=== PATIENT | female | born 1945 | race Caucasian/White ===

== ENCOUNTER 2019-12-09 10:30 | Day surgery (SDC) | payer OTHER ==
--- NOTE | 2019-12-08 15:41 | RAD REPORT ---
EXAM DESCRIPTION: RAD - Chest Pa And Lat (2 Views) - 12/08/2019 3:35 pm CLINICAL HISTORY: preop Chest pain. COMPARISON: Chest Single View dated 12/12/2015; Chest Single View dated 12/11/2015 FINDINGS: The lungs are clear. The heart is normal in size. No displaced fractures. IMPRESSION: No acute or concerning finding suspected.
[2019-12-08 16:11] LABS: Absolute Lymphocytes (CBC) 3.1 K/uL (0.7-4.9); Hematocrit 39.1 % (36.0-45.0); Lymphocytes % 33.3 % (15.3-44.8); RBC Red Blood Cell Count 4.41 M/uL (3.86-4.86)
[2019-12-08 16:21] LABS: Potassium 4.8 mmol/L (3.5-5.1)
[2019-12-09] MEDS ORDERED: NA CHLORIDE 0.9% 1,000 ML ONE (11:07)
[2019-12-09] MEDS ORDERED: FENTANYL CITR 100 MCG/2 ML ONE (12:09)
[2019-12-09] MEDS ORDERED: LIDOCAINE 1% MPF 5 ML VIAL ONE (12:09)
[2019-12-09] MEDS ORDERED: propofoL 200 MG/20 ML VIAL IV ONE (12:09)
[2019-12-09] MEDS ORDERED: CEFAZOLIN/SWI 1gm 1 GM/10 ML SYR ONE (12:13)
[2019-12-09] MEDS ORDERED: dexAMETHasone 10 MG/ML VIAL ONE (12:48)
[2019-12-09] MEDS ORDERED: KETOROLAC 30 MG/ML INJ ONE (12:48)
[2019-12-09] MEDS ORDERED: ONDANSETRON 4 MG/2 ML VIAL ONE (12:49)
--- NOTE | 2019-12-09 13:00 | P.BOP ---
Preoperative diagnosis: infected back subcutaneous mass with abscess Postoperative diagnosis: same Primary procedure: Excision of infected back subcutaneous mass with abscess drainage 7 x 5 cm Estimated blood loss: <10cc Specimen: mass, cult Findings: see dicta Anesthesia: General Complications: None Drain(s): Other Transferred to: Recovery Room Condition: Good
[2019-12-09] MEDS: MORPHINE 4 MG/ML SYR ONE ×2 (13:22→13:27)
[2019-12-09 13:30] VITALS: O2SAT 95
[2019-12-09 13:34] VITALS: TEMP 97
[2019-12-09] MEDS ORDERED: CODEINE 30MG/APAP 300MG TAB ONE (14:11)
[2019-12-09 14:38] VITALS: BP 184/88
--- NOTE | 2019-12-09 21:30 | OP ---
Date of Procedure: 12/09/2019 Surgeon: Herrera Donato MD Diagnosis: Infected back subcutaneous mass with abscess. Procedure: Excisional biopsy of complex infected back subcutaneous mass with abscess drainage, 7 x 5 x 1.5 cm. Specimen: Mass and culture of the purulent discharge and abscess. Anesthesia: General plus local. Indications: This is the case of a lady, who comes to us with a large mass in the back area with nec rotic skin present. This mass in the subcutaneous tissue was associated with cellulitis and abscess. The benefits, alternatives, and risks of excision and drainage of an abscess fully explained, which include, but not limited to infection, bleeding, damage to adjacent structures, anesthesia complicat ion, nonhealing wound, WI, and even . She also understands this may not relieve the symptoms. She might need more than one surgical intervention. She understood and signed the consent. The area of concern was marked by me and the patient in the operating room. She claimed that 1 of her friend 's family member will be doing dressing change on her. Description Of Procedure: The patient was brought to the operating room, placed in supine position, anesthesia was done without complication. The patient was placed in lateral decubitus position with proper protection. Back area was prepped and draped in sterile fashion. After that, we proceeded to delineate the area. There is necrotic tissue present, purulent discharge coming out. So, we debrid ed all that area and removed the skin with subcutaneous tissue, which is an area about 7 x 5 cm and t hen about 1 cm deep. It goes down to muscle and fascia of the muscle, but does not seem to be penetr ating the muscle. Hemostasis was obtained. Loculations were explored open, abscess was drained with the mass excised. The patient tolerated the procedure well. Area was injected with local anestheti c. Hemostasis was obtained and packed with wet-to-dry dressing. The patient sent to recovery in sta ble condition. Disposition: Home. Wet-to-dry dressing, normal saline daily. Medications: Tylenol No. 3 q.4 hours p.r.n. pain, Bactrim DS p.o. b.i.d. Plan: Follow up in my office in 1 week. Can take a shower with dressings off. BALTA/BEV Voice ID: [id number] Report ID: [id number]
--- NOTE | 2019-12-10 06:00 | EKG ---
Test Date: 2019-12-08 Test Time: 15:13:39 Refrigeration Tech: SHERRY MEASUREMENT RESULTS: Intervals: Rate: 66 KS: 160 QRSD: 98 QT: 402 QTc: 421 [place]: P: 52 KS: 160 QRS: 10 T: 67 INTERPRETIVE STATEMENTS: Sinus rhythm with occasional premature ventricular complexes Otherwise normal ECG Compared to ECG 12/12/2015 06:11:19 Ventricular premature complex(es) now present Sinus bradycardia no longer present Sinus arrhythmia no longer present Electronically Signed On 12-10-19 05:56:18 CDT by Dante Keating
== END 2019-12-09 14:30 | disposition home or self-care (01) ==
LOC: OR 10:30
PROVIDERS: ATTEND Surgery
PROC: 0JB70ZZ Excision of Back Subcutaneous Tissue and Fascia, Open Approach (ICD-10-PCS; principal; 2019-12-09 12:00)
DX: L72.0 Epidermal cyst (principal); L08.9 Local infection of the skin and subcutaneous tissue, unspecified; I10 Essential (primary) hypertension; E11.9 Type 2 diabetes mellitus without complications; E78.00 Pure hypercholesterolemia, unspecified; Z20.828 Contact with and (suspected) exposure to other viral communicable diseases
CPT/HCPCS: 93005 ×2; 87070; 85025; 80048; 36415; 87205; 82947 ×2; 88304; 87075; 71046; 11406; U0002; J2704; J3010; J1100; J0690; J7030; J2405; 88305

== ENCOUNTER 2020-01-13 09:21 | Emergency (ER) | payer OTHER | END 2020-01-13 09:30 | disposition left against medical advice (07) | LOC: ER 09:21 | DX: Z02.9 Encounter for administrative examinations, unspecified (principal) ==